=== PATIENT | female | born 1995 | race Caucasian/White ===

== ENCOUNTER → 2021-12-12 | Emergency (ER) | payer OTHER ==
[~2021-12-12] VITALS: Ht 160 cm; Wt 66.9 kg
[~2021-12-12] MED LIST: FAMOTIDINE 20 MG/2 ML VIAL IVP ONE; IOHEXOL 300 MG/ML 75 ML VIAL. IV ONE; KETOROLAC 15 MG/ML VIAL. IVP ONE; LIDO:MAALOX 1:1 20 ML SINGLE DOSE. PO ONE; OMEP40CA7 PO; ONDANSETRON PF 4 MG/2 ML VIAL. IVP ONE; SUCR1TAB35 PO
--- NOTE | 2021-12-12 21:05 | PHYS DOC ---
Past History Past Surgical History: No Surgical History Alcohol Use: None General Adult EDM: Chief Complaint: CHEST PAIN HPI: HPI: Patient is a 26-year-old female coming in for substernal and epigastric pain. Patient states that she vomited around 7 hours ago. States she has having some burning sensation substernally and took some Tums which improved, still having sharp pains in her epigastric area that radiates to the back. Patient states that over the past 4 to 5 days she has had vomiting and diarrhea that had improved. Patient states she is only vomited once today. Says that she has not taken anything else for the pain and has not had this kind of pain before. Patient states that she had a shot of vodka about 5 days ago but denies any recent alcohol use. Denies any recent spicy foods but had [employer] for lunch. States she has had a slight cough, denies any fevers. No pertinent medical history. Started taking sertraline 1.5 months ago does not had any problems with it. Review of Systems: Review of Systems: All other systems within normal limits except for as noted in the HPI Allergies: Allergies: Allergies Coded Allergies Type Severity Reaction Last Updated Verified No Known Drug Allergies 12/12/21 No Physical Exam: PE: Constitutional: Well developed, well nourished, no acute distress, non-toxic appearance. [] HENT: Normocephalic, atraumatic, bilateral external ears normal, nose normal. [] Eyes: PERRLA, conjunctiva normal, no discharge. [] Neck: No rigidity, supple, no stridor. [] Cardiovascular: Regular rate and rhythm, brisk cap refill [] Lungs & Thorax: Non labored symmetric respirations, no tachypnea or respiratory distress [] Abdomen: Soft, nondistended, epigastric tenderness to palpation, negative Tran's. Skin: Warm, dry, no erythema, no rash. [] Back: Unremarkable Extremities: No deformities, range of motion grossly intact, no lower extremity edema [] Neurologic: Alert and oriented X 3, no focal deficits noted. [] Psychologic: Affect normal, judgement normal, mood normal. [] Current Patient Data: Vital Signs: Vital Signs Date Time Temp Pulse Resp B/P (MAP) Pulse Ox O2 Delivery O2 Flow Rate FiO2 12/12/21 20:43 98.2 74 16 136/97 (110 97 Room Air EKG: EKG: Sinus rhythm, heart rate 78 bpm, normal EKG, no STEMI [] Radiology/Procedures: Radiology/Procedures: [address] [address] IMAGING REPORT Signed PATIENT: SAM MARTÍNEZ: [id number] : 1995 LOCATION: ER AGE: 26 SEX: F EXAM STATUS: REG ER ORD. PHYSICIAN: MONIQUE HOU MD REASON: chest pain PROCEDURE: CHEST PA & LATERAL INDICATION: Reason: chest pain / Spl. Instructions: / History: COMPARISON: None. FINDINGS: 2 view of chest obtained. No focal airspace consolidation. Cardiomediastinal contour unremarkable. No acute osseous abnormality. IMPRESSION: * No focal airspace consolidation or edema. Electronically signed by: Mason Rosenberg MD (12/12/2021 9:29 PM) [id number] DICTATED AND SIGNED BY: MASON ROSENBERG MD DATE: 12/12/212127 CC: MONIQUE HOU MD; JOCELINE VALERO [][address] [address] IMAGING REPORT Signed PATIENT: SAM MARTÍNEZ: [id number] : 1995 LOCATION: ER AGE: 26 SEX: F EXAM STATUS: REG ER ORD. PHYSICIAN: MONIQUE HOU MD REASON: OMNI 300, 75ML IV. Epigastric pain PROCEDURE: CT ABD PELV W/ IV CONTRST ONLY INDICATION: Reason: OMNI 300, 75ML IV. Epigastric pain / Spl. Instructions: / History: COMPARISON: None. TECHNIQUE: Axial CT images were obtained through the abdomen and pelvis with intravenous contrast. One or more of the following individualized dose reduction techniques were utilized for this examination: 1. Automated exposure control; 2. Adjustment of the mA and/or kV according to patient size; 3. Use of iterative reconstruction technique. FINDINGS: Vascular: No abdominal aortic aneurysm. Hepatobiliary: Liver mildly prominent in size. Pancreas: No peripancreatic edema. Spleen: Mildly prominent in size. Renal/Bladder: No hydronephrosis. Gastrointestinal: Wall thickening of the stomach. The appendix is partially seen with a small appendicolith within. Surrounding inflammatory changes are not identified. Possible low-density lesion with septation of the right adnexa measuring up to about 28 mm. There is some disc protrusions within the spine. IMPRESSION: * Wall thickening of the stomach. Possible causes would include gastritis or hypertrophic gastropathy. A gastric wall mass could also have this appearance but would be less common in a patient of this age. Would correlate with symptoms. * Possible low density lesion in the right ovary with septation. * No evidence of bowel obstruction. Electronically signed by: Mason Rosenberg MD (12/12/2021 11:28 PM) [id number] DICTATED AND SIGNED BY: MASON ROSENBERG MD DATE: 12/12/212319 CC: MONIQUE HOU MD; JOCELINE VALERO ~ Heart Score: C/O Chest Pain: N/A Risk Factors: Risk Factors: DM, Current or recent (<one month) smoker, HTN, HLP, family history of CAD, obesity. Risk Scores: Score 0 - 3: 2.5% MACE over next 6 weeks - Discharge Home Score 4 - 6: 20.3% MACE over next 6 weeks - Admit for Clinical Observation Score 7 - 10: 72.7% MACE over next 6 weeks - Early Invasive Strategies Course & Med Decision Making: Course & Med Decision Making Pertinent Labs and Imaging studies reviewed. (See chart for details) [] Dragon Disclaimer: Dragon Disclaimer: This electronic medical record was generated, in whole or in part, using a voice recognition dictation system. Departure Departure: Impression: Primary Impression: Gastritis Disposition: HOME / SELF CARE / HOMELESS Condition: STABLE Referrals: JOCELINE VALERO (PCP) Patient Instructions: Gastritis, Adult Additional Instructions: Take omeprazole daily with your other medication. Take the Carafate as needed but take 2 hours before or after any other medications. Scripts Omeprazole (OMEPRAZOLE) 40 Mg Capsule. 1 CAP PO DAILY for antacid, #30 CAP 3 Refills Prov: MONIQUE HOU MD 12/12/21 Sucralfate (CARAFATE) 1 Gm Tablet 1 TAB PO QID PRN for GI SYMPTOMS for 10 Days, #40 TAB 0 Refills Prov: MONIQUE HOU MD 12/12/21 MONIQUE HOU MD Dec 12, 2021 21:05
--- NOTE | 2021-12-12 21:31 | RAD ---
INDICATION: Reason: chest pain / Spl. Instructions: / History: COMPARISON: None. FINDINGS: 2 view of chest obtained. No focal airspace consolidation. Cardiomediastinal contour unremarkable. No acute osseous abnormality. IMPRESSION: * No focal airspace consolidation or edema. Electronically signed by: Roque Rosenberg MD (12/12/2021 9:29 PM) [id number]
[2021-12-12 21:45] LABS: CALCIUM 8.9 mg/dL (8.5-10.1); CREATININE 0.9 mg/dL (0.6-1.0); GFR 76.3; POTASSIUM 3.6 mmol/L (3.5-5.1)
[2021-12-12 21:51] LABS: ALBUMIN 3.7 g/dL (3.4-5.0); ALBUMIN/GLOBULIN RATIO 1.2 (1.0-1.7); TOTAL PROTEIN 6.9 g/dL (6.4-8.2)
[2021-12-12 22:18] LABS: BASO % 0 % (0-3); EOS # 0.1 x10^3/uL (0.0-0.7); EOS % 1 % (0-3); HEMATOCRIT 41.3 % (36.0-47.0); HEMOGLOBIN 13.9 g/dL (12.0-15.5); LYMPH # 1.4 x10^3/uL (1.0-4.8); LYMPH % 14 % (24-48); MEAN CORPUSCULAR HEMOGLOBIN 29 pg (25-35); MEAN CORPUSCULAR HGB CONC 34 g/dL (31-37); MEAN CORPUSCULAR VOLUME 86 fL (79-100); MONO # 0.6 x10^3/uL (0.0-1.1); MONO % 6 % (0-9); NEUT # 8.3 x10^3uL (1.8-7.7); NEUT % 79 % (31-73); PLATELET COUNT 222 x10^3/uL (140-400); RED BLOOD COUNT 4.83 x10^6/uL (3.50-5.40); RED CELL DISTRIBUTION WIDTH 13.7 % (11.5-14.5); WHITE BLOOD COUNT 10.5 x10^3/uL (4.0-11.0)
--- NOTE | 2021-12-12 23:30 | RAD ---
INDICATION: Reason: OMNI 300, 75ML IV. Epigastric pain / Spl. Instructions: / History: COMPARISON: None. TECHNIQUE: Axial CT images were obtained through the abdomen and pelvis with intravenous contrast. One or more of the following individualized dose reduction techniques were utilized for this examinat ion: 1. Automated exposure control; 2. Adjustment of the mA and/or kV according to patient size; 3 . Use of iterative reconstruction technique. FINDINGS: Vascular: No abdominal aortic aneurysm. Hepatobiliary: Liver mildly prominent in size. Pancreas: No peripancreatic edema. Spleen: Mildly prominent in size. Renal/Bladder: No hydronephrosis. Gastrointestinal: Wall thickening of the stomach. The appendix is partially seen with a small appendi colith within. Surrounding inflammatory changes are not identified. Possible low-density lesion with septation of the right adnexa measuring up to about 28 mm. There is some disc protrusions within the spine. IMPRESSION: * Wall thickening of the stomach. Possible causes would include gastritis or hypertrophic gastropat hy. A gastric wall mass could also have this appearance but would be less common in a patient of this age. Would correlate with symptoms. * Possible low density lesion in the right ovary with septation. * No evidence of bowel obstruction. Electronically signed by: Roque Rosenberg MD (12/12/2021 11:28 PM) [id number]
[2021-12-12 23:54] VITALS: BP 114/62
--- NOTE | 2021-12-13 02:43 | EKG ---
[facility] ED [facility] [place] [id number] Test Date: 2021-12-12 Test Time: 20:44:16 Pat Name: SAM MARTÍNEZ Department: Room: Gender: F [employer] Representative: JOHN : 1995 Requested By: MONIQUE HOU Order Number: [id number] Reading MD: Measurements Intervals [place] Rate: 78 P: 62 VA: 144 QRS: 79 QRSD: 82 T: 37 QT: 388 QTc: 446 Interpretive Statements SINUS RHYTHM NO SPECIFIC ECG ABNORMALITIES RI6.01 No previous ECG available for comparison
== END | disposition home or self-care (01) ==
LOC: ER 20:33
DX: K29.70 Gastritis, unspecified, without bleeding (principal)
CPT/HCPCS: 36415; 71046; 74177; 80053; 83690; 84484; 85025; 93005; 96374; 96375; 99285; J1885; J2405; J3490; Q9967